=== PATIENT | female | born 1975 | race Caucasian/White ===

== ENCOUNTER → 2024-02-26 09:00 | Outpatient (REF) | payer OTHER, SELFPAY | LOC: HWRAD 09:00 | PROVIDERS: ATTENDING PHYSICIAN Obstetrics & Gynecology; FAMILY PHYSICIAN Internal Medicine | DX: E07.9 Disorder of thyroid, unspecified (principal); R93.89 Abnormal findings on diagnostic imaging of other specified body structures | CPT/HCPCS: 76536; 76830; 76856 ==